=== PATIENT | male | born 1990 | race Hispanic/Latino ===

== ENCOUNTER 2017-02-20 08:49 | Emergency (ER) | payer SELFPAY ==
[~2017-02-20] VITALS: Ht 180.3 cm; Wt 70.0 kg
[~2017-02-20 08:49] MED LIST: AMOXICILLIN500 MG PO; BACTRIM DS1 TAB OR; CEPH500C57 OR; DOXYCYC MONO100 MG OR; LORTAB 5 OR; NO HOME MEDS; PERCOCET 5/325M1 TAB OR; ULTRAM50 M1 PO
[2017-02-20] MEDS ORDERED: AMOX/K CLAV875 M1 PO (09:27)
[2017-02-20 10:29] VITALS: BP 131/87
== END 2017-02-20 10:29 | disposition home or self-care (01) | DRG 605 ==
LOC: ED 08:49
DX: S30.871A Other superficial bite of abdominal wall, initial encounter (principal); W54.0XXA Bitten by dog, initial encounter; Y92.410 Unspecified street and highway as the place of occurrence of the external cause

== ENCOUNTER 2017-05-27 | Emergency (ER) | payer SELFPAY ==
[~2017-05-27] VITALS: Ht 180.3 cm; Wt 73.6 kg
[~2017-05-27] MED LIST changes: +AMOX/K CLAV875 M1 PO
[2017-05-27 00:42] VITALS: BP 136/89
== END 2017-05-27 00:50 | disposition home or self-care (01) | DRG 605 ==
LOC: ED
DX: S80.11XA Contusion of right lower leg, initial encounter (principal); X58.XXXA Exposure to other specified factors, initial encounter

== ENCOUNTER 2020-10-29 23:15 | Emergency (ER) | payer OTHER ==
[2020-10-30 00:13] LABS: HEMATOCRIT 45.2 % (39.0-50.0); HEMOGLOBIN 14.9 g/dl (14.0-18.0); IMMATURE GRANULOCYTES 0.3 % (0.0-5.0); MEAN CORPUSCULAR HGB 31.6 pG CALC (26.0-32.0); NEUT# 1.55 thou/uL (1.82-7.42); RED BLOOD COUNT 4.71 mill/uL (4.70-6.10); RED CELL DISTRI WIDTH 12.7 % (11.5-15.5)
[2020-10-30 01:12] VITALS: BP 130/80
== END 2020-10-30 01:09 | disposition home or self-care (01) ==
LOC: ED 23:15
PROVIDERS: Family Medicine
DX: U07.1 COVID-19 (principal)